=== PATIENT | female | born 1975 | race Caucasian/White ===

== ENCOUNTER 2018-02-12 23:50 | Emergency (ER) | payer BC ==
[~2018-02-12] VITALS: Ht 170.2 cm; Wt 108.9 kg
[2018-02-13] VITALS: BP 144/80
--- NOTE | 2018-02-13 00:32 | NUR ---
PT AMBULATED TO CHAIR E
--- NOTE | 2018-02-13 00:33 | NUR ---
42/F CAME IN, C/O 9/10 STABBING/SHARP 9/10 JAW, THROAT AND FACIAL PAIN, RADIATING TO FACE, X5 DAYS WORSENING TODAY. PT REPORTS TAKING TYLENOL AT 2230 WITH LITTLE RELIEF. PT REPORTS LIGHTHEADEDNESS AND NAUSEA. PT DENIES FEVER, V/D, DYSURIA. AOX4, AMBULATORY, RR EVEN AND UNLABORED. HX "TATITLEK'S SYNDROME/CAROTID ARTERY SYNDROME," HERNIATED DISC, VERTIGO, FOOT SURGERY. ALLERGY TO NORCO AND PERCOCET. ER MD DR MARIE AWARE.
[2018-02-13] MEDS ORDERED: predniSONE 20 MG TAB PO ONE (01:10)
--- NOTE | 2018-02-13 03:28 | NUR ---
PATIENT MOVED TO ER BED 12.
--- NOTE | 2018-02-13 03:42 | NUR ---
Patient discharged with v/s stable. Written and verbal after care instructions given and explained. Patient alert, oriented and verbalized understanding of instructions. Ambulatory with steady gait. All questions addressed prior to discharge. ID band removed. Patient advised to follow up with PMD. Rx of AZITHROMYCIN 250MG, PREDNISONE 20MG given. Patient educated on indication of medication including possible reaction and side effects. Opportunity to ask questions provided and answered.
[2018-02-13 03:47] VITALS: BP 132/75
== END 2018-02-13 03:42 | disposition home or self-care (01) ==
LOC: MED 23:50
DX: J32.9 Chronic sinusitis, unspecified (principal); Z88.8 Allergy status to other drugs, medicaments and biological substances
CPT/HCPCS: 70486; 99283; J7512

== ENCOUNTER 2018-03-23 01:32 | Emergency (ER) | payer BC ==
[~2018-03-23] VITALS: Ht 167.6 cm; Wt 110.9 kg
--- NOTE | 2018-03-23 01:35 | NUR ---
PT LEFT WITHOUT BEING SEEN. PT EXPRESSED WISH TO ONLY CHECK TEMPERATURE AND BP. PT EDUCATED TO VISIT [facility] AND/OR [facility], [facility]. PT DENIES CP AND SOB, NO SIGNS OF DISTRESS. ER MD DR. CADET NOTIFIED.
[2018-03-23 01:38] VITALS: BP 141/71
== END 2018-03-23 01:35 | disposition left against medical advice (07) ==
LOC: MED 01:32
DX: Z53.21 Procedure and treatment not carried out due to patient leaving prior to being seen by health care provider (principal)

== ENCOUNTER 2018-05-04 06:55 | Emergency (ER) | payer BC ==
[~2018-05-04] VITALS: Ht 170.2 cm; Wt 107.5 kg
[2018-05-04 06:55] VITALS: BP_SYST 135; BP_SYST 93; BP_DIAS 59; BP_DIAS 66
--- NOTE | 2018-05-04 06:55 | NUR ---
PATIENT BIB BLS TO ER BED 2.
--- NOTE | 2018-05-04 07:20 | NUR ---
43 YO F BIBA W/ C/O DIZZINESS X 1 DAY THAT BEGAN 20 MINS [employer]ESS[employer]. PT DENEIS N/V/FEVER/CHILLS. DENIES ANY INJURY/TRAUMA TO HEAD/NECK. PT DOES PRESENT W/ LEFT ARM IN A SLING. PT A&O X 4. GCS 15. CMS INTACT. RR EVEN AND UNLABORED. LUNGS BILATERALLY CLEAR. ABD SOFT, NON-TENDER. ER MD ZHANG NOTIFIED. PT NEEDS MET. SAFETY PRECAUTIONS IN PLACE. WILL CONTINUE TO MONITOR.
[2018-05-04] MEDS ORDERED: NACL 0.9% 1,000 ML IV ONE (07:50)
[2018-05-04 08:05] LABS: BASOPHILS % (AUTO) 0.6 % (0.0-2.0); EOSINOPHILS # (AUTO) 0.1 K/uL (0-0.4); HEMATOCRIT 35.3 % (36-48); HEMOGLOBIN 11.4 g/dL (12.0-16.0); LYMPHOCYTES # (AUTO) 2.1 K/uL (2.5-16.5); LYMPHOCYTES % (AUTO) 26.6 % (20.5-51.1); MEAN CORPUSCULAR HEMOGLOBIN 26 pg (27-31); MEAN CORPUSCULAR HGB CONC 33 g/dL (33-37); MEAN CORPUSCULAR VOLUME 78.8 fL (80-94); MONOCYTES # (AUTO) 0.5 K/uL (0.8-1.0); MONOCYTES % (AUTO) 5.9 % (1.7-9.3); NEUTROPHILS # (AUTO) 5.1 K/uL (1.8-7.7); NEUTROPHILS % (AUTO) 65.9 % (42.2-75.2); PLATELET COUNT (AUTO) 281 K/uL (140-450); RED BLOOD CELL COUNT(AUTO) 4.47 MIL/uL (4.20-5.40); RED CELL DISTRIBUTION WIDTH 14.1 % (11.6-13.7); WHITE BLOOD COUNT (AUTO) 7.8 K/uL (4.8-10.8)
[2018-05-04 08:20] LABS: ANION GAP 11.8 (8-16); CARBON DIOXIDE 25.1 mmol/L (21-32); CREATININE 0.8 mg/dL (0.6-1.3); POTASSIUM 3.9 mmol/L (3.5-5.1); TOTAL BILIRUBIN 0.5 mg/dL (0.0-1.0)
--- NOTE | 2018-05-04 09:37 | NUR ---
PT RESTING COMFORTABLY IN [facility] AT THIS TIME. VSS. WILL CONTINUE TO MONITOR.
--- NOTE | 2018-05-04 09:45 | NUR ---
PT AMBULATES W/ STEADY GAIT TO THE RESTROOM AT THIS TIME WITHOUT INCIDENT.
[2018-05-04 09:54] LABS: BARBITURATE, URINE NEG. ng/ml (NEG <=200); BENZODIAZEPINE, URINE NEG. ng/mL (NEG <=200); CANNABINOID, URINE NEG. ng/mL (NEG <=50); COCAINE, URINE NEG. ng/mL (NEG <=300); OPIATE, URINE NEG. ng/mL (NEG <=2000); PHENCYCLIDINE SCREEN,URINE NEG. ng/mL (NEG <=25)
[2018-05-04 10:18] VITALS: BP 122/72
--- NOTE | 2018-05-04 10:20 | NUR ---
Patient discharged with v/s stable. Written and verbal after care instructions given and explained. Patient verbalized understanding. Ambulatory with steady gait. All questions addressed prior to discharge. Advised to follow up with PMD.
== END 2018-05-04 10:20 | disposition home or self-care (01) ==
LOC: MED 06:55
DX: R55 Syncope and collapse (principal); Z88.6 Allergy status to analgesic agent
CPT/HCPCS: 36415; 80053; 80305; 81002; 81025; 85025; 93005; 96360; 99285; J7030

== ENCOUNTER 2018-07-19 03:38 | Emergency (ER) | payer BC ==
[~2018-07-19] VITALS: Ht 170.2 cm; Wt 108.9 kg
[2018-07-19 03:38] VITALS: BP 115/74
--- NOTE | 2018-07-19 03:38 | NUR ---
TO BED # 11 AMBULATORY, REPORT GIVEN TO ANGELA MUHAMMAD
[2018-07-19] MEDS ORDERED: ASPIRIN 325 MG TAB PO ONE (03:50)
--- NOTE | 2018-07-19 03:50 | NUR ---
c/o chest pain to left side of chest s/p nerve abalation 4 days ago, w/ nausea . pt is laying in bed, facial grimacing noted, vss, non diaphoretic. pt states she has been taking home pain meds w/ minimal relief. pt states she has hx of syncopal episodes and drove her self here and felt dizzy on the way. pt ambulated even steady gait.
--- NOTE | 2018-07-19 03:54 | NUR ---
ASPIRIN NOT GIVEN , PT REFUSES , STATES SHE HAS PROCEDURE TOMORROW.
[2018-07-19] MEDS ORDERED: NACL 0.9% 1,000 ML IV ONE (04:05)
[2018-07-19] MEDS ORDERED: MECLIZINE 25 MG TAB PO ONE (04:05)
[2018-07-19] MEDS ORDERED: ONDANSETRON 4 MG/2 ML VIAL IVP ONE (04:25)
[2018-07-19 04:37] LABS: APPEARANCE,URINE CLEAR (CLEAR); BILIRUBIN,URINE NEGATIVE (NEGATIVE); BLOOD, URINE NEGATIVE (NEGATIVE); COLOR,URINE YELLOW (YELLOW); LEUKOCYTE ESTERASE ,URINE NEGATIVE (NEGATIVE); NITRITE, URINE NEGATIVE (NEGATIVE); UGLUCOSE NEGATIVE (NEGATIVE)
[2018-07-19 04:50] LABS: BASOPHILS # (AUTO) 0.1 K/uL (0.00-0.22); BASOPHILS % (AUTO) 0.7 % (0.0-2.0); EOSINOPHILS # (AUTO) 0.2 K/uL (0-0.4); EOSINOPHILS % (AUTO) 1.5 % (0.0-4.0); HEMATOCRIT 37.1 % (36-48); HEMOGLOBIN 11.8 g/dL (12.0-16.0); LYMPHOCYTES # (AUTO) 3.4 K/uL (2.5-16.5); LYMPHOCYTES % (AUTO) 29.5 % (20.5-51.1); MEAN CORPUSCULAR HEMOGLOBIN 25 pg (27-31); MEAN CORPUSCULAR HGB CONC 32 g/dL (33-37); MEAN CORPUSCULAR VOLUME 77.1 fL (80-94); MONOCYTES # (AUTO) 0.4 K/uL (0.8-1.0); MONOCYTES % (AUTO) 3.9 % (1.7-9.3); NEUTROPHILS # (AUTO) 7.4 K/uL (1.8-7.7); NEUTROPHILS % (AUTO) 64.4 % (42.2-75.2); PLATELET COUNT (AUTO) 323 K/uL (140-450); RED BLOOD CELL COUNT(AUTO) 4.82 MIL/uL (4.20-5.40); RED CELL DISTRIBUTION WIDTH 15.7 % (11.6-13.7); WHITE BLOOD COUNT (AUTO) 11.5 K/uL (4.8-10.8)
[2018-07-19 04:53] LABS: BARBITURATE, URINE NEG. ng/ml (NEG <=200); BENZODIAZEPINE, URINE NEG. ng/mL (NEG <=200); CANNABINOID, URINE NEG. ng/mL (NEG <=50); COCAINE, URINE NEG. ng/mL (NEG <=300); OPIATE, URINE NEG. ng/mL (NEG <=2000); PHENCYCLIDINE SCREEN,URINE NEG. ng/mL (NEG <=25)
[2018-07-19 04:57] LABS: ALBUMIN 3.2 g/dL (3.4-5.0); ANION GAP 9.8 (8-16); CARBON DIOXIDE 28.9 mmol/L (21-32); CREATININE 0.8 mg/dL (0.6-1.3); POTASSIUM 3.7 mmol/L (3.5-5.1); TOTAL BILIRUBIN 0.6 mg/dL (0.0-1.0)
[2018-07-19] MEDS ORDERED: SUMAtriptan 25 MG TAB PO ONE (05:50)
[2018-07-19] MEDS ORDERED: MORPHINE SULFATE 4 MG/ML SYR IVP ONE (06:40)
--- NOTE | 2018-07-19 07:10 | NUR ---
Patient discharged with v/s stable. Written and verbal after care instructions given and explained. Patient alert, oriented and verbalized understanding of instructions. Ambulatory with steady gait. All questions addressed prior to discharge. ID band removed. Patient advised to follow up with PMD. Rx of IMITREX 25 MG given. Patient educated on indication of medication including possible reaction and side effects. Opportunity to ask questions provided and answered.
[2018-07-19 07:15] VITALS: BP 118/81
== END 2018-07-19 07:10 | disposition home or self-care (01) ==
LOC: MED 03:38
DX: F41.9 Anxiety disorder, unspecified (principal); R07.9 Chest pain, unspecified; R51 Headache; G89.29 Other chronic pain; Z88.5 Allergy status to narcotic agent
CPT/HCPCS: 36415; 71045; 80053; 80305; 81003; 84484; 85025; 85379; 93005; 99285; J2405; J8597; Q0092; J2270; J7030